=== PATIENT | male | born 1960 | race Caucasian/White ===

== ENCOUNTER 2017-06-23 17:57 | Observation (INO) | payer OTHER ==
[~2017-06-23] VITALS: Ht 177.8 cm; Wt 90.0 kg
[~2017-06-23 17:57] MED LIST: BUPR100T4 PO; CITA40TA4 PO; CYCL5TAB PO; GEMF600T PO; LISI40TA PO; NEUR300C PO; OXYC-432 PO; TAMS0.4C4 PO; TEST1INJ3 IM
[2017-06-23 17:59] VITALS: BP 171/77; PULSE 67; RESP 20; TEMP 98.3; O2SAT 96
[2017-06-23 18:29] VITALS: BP_SYST 171; BP_SYST 191; BP_DIAS 77; BP_DIAS 93; PULSE 60; RESP 17
[2017-06-23] MEDS ORDERED: SODIUM CHLORIDE 0.9% FLUSH 10 ML FLUSH IVF PRN (18:45)
[2017-06-23 18:59] VITALS: O2SAT 97
[2017-06-23 19:23] LABS: AUTOMATED NEUTROPHIL # 8.6 TH/MM3 (1.8-7.7); BASOPHIL # 0.1 TH/MM3 (0-0.2); BASOPHIL % 0.6 % (0.0-2.0); EOSINOPHIL # 0.3 TH/MM3 (0-0.4); EOSINOPHIL % 2.3 % (0.0-4.0); HEMATOCRIT 47.7 % (39.0-51.0); HEMOGLOBIN 16.4 GM/DL (13.0-17.0); LYMPH % 21.7 % (9.0-44.0); LYMPHOCYTE # 2.7 TH/MM3 (1.0-4.8); MEAN CELL VOLUME 94.7 FL (80.0-100.0); MEAN CORPUSCULAR HEMOGLOBIN 32.6 PG (27.0-34.0); MEAN CORPUSCULAR HGB CONC 34.5 % (32.0-36.0); MEAN PLATELET VOLUME 7.3 FL (7.0-11.0); MONO % 5.4 % (0.0-8.0); MONOCYTE # 0.7 TH/MM3 (0-0.9); PLATELET COUNT 328 TH/MM3 (150-450); RED BLOOD COUNT 5.04 MIL/MM3 (4.50-5.90); RED CELL DISTRIBUTION WIDTH 15.7 % (11.6-17.2); WHITE BLOOD COUNT 12.3 TH/MM3 (4.0-11.0)
[2017-06-23] MEDS ORDERED: FAMOTIDINE 20 MG/2 ML VIAL IV PUSH SCH (19:30)
[2017-06-23] MEDS ORDERED: PANTOPRAZOLE SODIUM 40 MG VIAL IV PUSH ONE (19:30)
[2017-06-23] MEDS ORDERED: ASPIRIN 81 MG CHEW TAB CHEW ONE (19:30)
--- NOTE | 2017-06-23 19:30 | PD ---
HPI Chief Complaint: Chest Pain Time Seen by Provider: 19:02 Travel History International Travel<30 days: No Contact w/Intl Traveler<30days: No Traveled to known affect area: No History of Present Illness HPI Patient is a 56-year-old male with heavy numbness in his chest. He said for the last few weeks he has had a cough and asthma like reactive airway. He said now he feels like a heavy pressure on his chest for the last few hours. He denies pleuritic pain he denies worsening with cough he did not take any aspirin he did not come by EMS he was in his doctor's office when he described a heavy pressure in his chest the doctor did an EKG and sent him to the ER for further eval. Patient refused transfer by ambulance but came by a car. He has not received aspirin or nitro. He has no allergic allergies to any medication. His pain as heaviness pressure-like constant in his chest for the last few hours seen in his doctor's office prior to arrival in the ER not given anything to alleviate the symptoms and to continue now in the ER he is hypertensive on my first exam systolic pressure is 191 he is on antihypertensive meds he does not remove other name PFSH Past Medical History Hx Anticoagulant Therapy: No Depression: Yes Cardiovascular Problems: Yes (HTN) Hypertension: Yes Tetanus Vaccination: > 5 Years Influenza Vaccination: Yes Social History Alcohol Use: No Tobacco Use: No Substance Use: No Allergies-Medications (Allergen,Severity, Reaction): Coded Allergies: shellfish derived (Unverified Allergy, Severe, 06/23/17) Reported Meds & Prescriptions Reported Meds & Active Scripts Active Reported Flexeril (Cyclobenzaprine HCl) 5 Mg Tab 5 Mg PO TID Neurontin (Gabapentin) 300 Mg Cap 300 Mg PO TID Citalopram (Citalopram Hydrobromide) 40 Mg Tab 40 Mg PO DAILY Tamsulosin (Tamsulosin HCl) 0.4 Mg Cap 0.4 Mg PO HS Gemfibrozil 600 Mg Tab 600 Mg PO BIDAC Take 30 minutes prior to breakfast and dinner. Bupropion HCl 100 Mg Tab 100 Mg PO HS Lisinopril 40 Mg Tab 40 Mg PO DAILY Testosterone Cypionate Inj (Testosterone Cypionate) 100 Mg/Ml Inj 50 Mg IM DAILY Oxycodone-Acetaminophen 5-325 mg Tab 1 Tab PO DAILY PRN Review of Systems Except as stated in HPI: all other systems reviewed are Neg Cardiovascular: Positive: Chest Pain or Discomfort Respiratory: Positive: Cough, Shortness of Breath Physical Exam Narrative GENERAL: awake alert htn 191 tanned SKIN: Warm and dry.tanned skin HEAD: Atraumatic. Normocephalic. EYES: Pupils equal and round. No scleral icterus. No injection or drainage. 2mm pupils ENT: No nasal bleeding or discharge. Mucous membranes pink and moist. NECK: Trachea midline. No JVD. CARDIOVASCULAR: Regular rate and rhythm. multiple PACs RESPIRATORY: No accessory muscle use. diffuse wheeze worse in Right lung GASTROINTESTINAL: Abdomen soft, non-tender, nondistended. Hepatic and splenic margins not palpable. MUSCULOSKELETAL: Extremities without clubbing, cyanosis, or edema. No obvious deformities. NEUROLOGICAL: Awake and alert. No obvious cranial nerve deficits. Motor grossly within normal limits. Five out of 5 muscle strength in the arms and legs. Normal speech. PSYCHIATRIC: Appropriate mood and affect; insight and judgment normal. Data Data Last Documented VS Vital Signs Date Time Temp Pulse Resp B/P (MAP) Pulse Ox O2 Delivery O2 Flow Rate FiO2 06/23/17 21:05 62 16 157/69 (98) 97 Room Air 06/23/17 18:59 2.00 06/23/17 17:59 98.3 Orders Orders Chest, Pa & Lat (06/23/17 ) Electrocardiogram (06/23/17 ) Ckmb (Isoenzyme) Profile (06/23/17 18:40) Complete Blood Count With Diff (06/23/17 18:40) Comprehensive Metabolic Panel (06/23/17 18:40) Magnesium (Mg) (06/23/17 18:40) Prothrombin Time / Inr (Pt) (06/23/17 18:40) Act Partial Throm Time (Ptt) (06/23/17 18:40) Troponin I (06/23/17 18:40) Lipase (06/23/17 18:40) Ecg Monitoring (06/23/17 18:40) Bilateral Bp Monitoring (06/23/17 18:40) Iv Access Insert/Monitor (06/23/17 18:40) Oximetry (06/23/17 18:40) Oxygen Administration (06/23/17 18:40) Sodium Chloride 0.9% Flush (Ns Flush) (06/23/17 18:45) Aspirin Chew (Aspirin Chew) (06/23/17 19:30) Famotidine Inj (Pepcid Inj) (06/23/17 19:30) Pantoprazole Inj (Protonix Inj) (06/23/17 19:30) CKMB (06/23/17 18:45) CKMB% (06/23/17 18:45) Nitroglycerin Sl (Nitrostat Sl) (06/23/17 20:00) Nitroglycerin 2% Oint (Nitroglycerin 2% (06/23/17 20:00) B-Type Natriuretic Peptide (06/23/17 19:51) Ipratropium Neb (Atrovent Neb) (06/23/17 20:00) Admit Order (Ed Use Only) (06/23/17 21:29) Labs Laboratory Tests Test 06/23/17 18:45 White Blood Count 12.3 TH/MM3 Red Blood Count 5.04 MIL/MM3 Hemoglobin 16.4 GM/DL Hematocrit 47.7 % Mean Corpuscular Volume 94.7 FL Mean Corpuscular Hemoglobin 32.6 PG Mean Corpuscular Hemoglobin Concent 34.5 % Red Cell Distribution Width 15.7 % Platelet Count 328 TH/MM3 Mean Platelet Volume 7.3 FL Neutrophils (%) (Auto) 70.0 % Lymphocytes (%) (Auto) 21.7 % Monocytes (%) (Auto) 5.4 % Eosinophils (%) (Auto) 2.3 % Basophils (%) (Auto) 0.6 % Neutrophils # (Auto) 8.6 TH/MM3 Lymphocytes # (Auto) 2.7 TH/MM3 Monocytes # (Auto) 0.7 TH/MM3 Eosinophils # (Auto) 0.3 TH/MM3 Basophils # (Auto) 0.1 TH/MM3 CBC Comment DIFF FINAL Differential Comment Prothrombin Time 10.0 SEC Prothromb Time International Ratio 1.0 RATIO Activated Partial Thromboplast Time 29.0 SEC Blood Urea Nitrogen 9 MG/DL Creatinine 1.03 MG/DL Random Glucose 77 MG/DL Total Protein 7.7 GM/DL Albumin 3.9 GM/DL Calcium Level 9.0 MG/DL Magnesium Level 2.1 MG/DL Alkaline Phosphatase 77 U/L Aspartate Amino Transf (AST/SGOT) 21 U/L Alanine Aminotransferase (ALT/SGPT) 32 U/L Total Bilirubin 0.4 MG/DL Sodium Level 137 MEQ/L Potassium Level 4.3 MEQ/L Chloride Level 106 MEQ/L Carbon Dioxide Level 22.6 MEQ/L Anion Gap 8 MEQ/L Estimat Glomerular Filtration Rate 75 ML/MIN Total Creatine Kinase 159 U/L Creatine Kinase MB 2.2 NG/ML Troponin I LESS THAN 0.02 NG/ML B-Type Natriuretic Peptide 32 PG/ML Lipase 226 U/L MDM Medical Decision Making Medical Screen Exam Complete: Yes Emergency Medical Condition: Yes Interpretation(s) SINUS ANTHONY with short sinus pause , normal p QRS complex x 2 then pause then repeated pattern , not causing hypotension Differential Diagnosis HTN vs chest pain cause elvated HTN vs HTN causing cardiac ischemia vs GERD pain causing elevated BP other Narrative Course Protonix and nitro and ASA and ekg x 2 then trop negative admit to chest pain center for 3 trop and stress test in AM Diagnosis Primary Impression: Chest pain Qualified Codes: R07.9 - Chest pain, unspecified Additional Impression: Hypertension Qualified Codes: I10 - Essential (primary) hypertension Admitting Information Admitting Physician Requests: Observation Mike Leach MD Jun 23, 2017 19:30
[2017-06-23 19:44] LABS: ALBUMIN 3.9 GM/DL (3.4-5.0); AST (GOT) 21 U/L (15-37); BICARBONATE 22.6 MEQ/L (21.0-32.0); BLOOD UREA NITROGEN 9 MG/DL (7-18); CHLORIDE 106 MEQ/L (98-107); CREATININE 1.03 MG/DL (0.60-1.30); GLOMERULAR FILTRATION RATE 75 ML/MIN (>89); GLUCOSE,RANDOM 77 MG/DL (74-106); MAGNESIUM 2.1 MG/DL (1.5-2.5); SODIUM (NA) 137 MEQ/L (136-145)
[2017-06-23 19:45] LABS: ALT (GPT) 32 U/L (12-78)
[2017-06-23 19:49] LABS: ALKALINE PHOSPHATASE 77 U/L (45-117); TOTAL BILIRUBIN ADULT 0.4 MG/DL (0.2-1.0); TOTAL PROTEIN 7.7 GM/DL (6.4-8.2); TROPONIN I LESS THAN 0.02 NG/ML (0.02-0.05)
--- NOTE | 2017-06-23 19:56 | RADRPT ---
EXAM DATE/TIME: 06/23/2017 19:27 [facility] COMPARISON: No previous studies available for comparison. INDICATIONS : Pt was diagnosed by his PCP with Bronchitis June 07, 2017 and has been coughing and vomiting for over one month. Pt states he feels extreme pressure on his chest. MEDICAL HISTORY : None. Bronchitis 06/07/2017 SURGICAL HISTORY : None. ENCOUNTER: Initial ACUITY: 1 month PAIN SCORE: 5/10 LOCATION: Bilateral chest FINDINGS: PA and lateral views of the chest demonstrate the lungs to be symmetrically aerated without evidence of mass, infiltrate or effusion. The cardiomediastinal contours are unremarkable. Osseous structure s are intact. CONCLUSION: No acute disease. Tristen Mathur MD on June 23, 2017 at 19:53 Board Certified Radiologist. This report was verified electronically.
[2017-06-23] MEDS ORDERED: NITROGLYCERIN 0.4 MG SL 25 TABS/BTL SL ONE (20:00)
[2017-06-23] MEDS ORDERED: RESP: IPRATROPIUM 0.5 MG/2.5 ML NEB NEB ONE (20:00)
[2017-06-23] MEDS ORDERED: NITROGLYCERIN 2% OINT 1 GM PACKET TOPICAL ONE (20:00)
[2017-06-23 21:05] VITALS: BP 157/69; PULSE 62; RESP 16; O2SAT 97
[2017-06-23] MEDS: SODIUM CHLORIDE 0.9% FLUSH 10 ML FLUSH IV FLUSH SCH (21:44)
[2017-06-23] MEDS ORDERED: SODIUM CHLORIDE 0.9% FLUSH 10 ML FLUSH IV FLUSH PRN (21:45)
[2017-06-23 22:51] VITALS: BP 140/82; PULSE 72; RESP 16; O2SAT 96
[2017-06-24] VITALS (9 sets, daily range): BP systolic 124–149; BP diastolic 70–74; PULSE 53–100; RESP 16–18; TEMP 98–98.6; O2SAT 93–97
[2017-06-24 00:04] LABS: TROPONIN I LESS THAN 0.02 NG/ML (0.02-0.05)
[2017-06-24 03:57] LABS: TROPONIN I LESS THAN 0.02 NG/ML (0.02-0.05)
[2017-06-24] MEDS ORDERED: oxyCODONE/ACETAMINOPHEN 5 MG/325 MG TAB PO PRN (07:45)
[2017-06-24] MEDS: SODIUM CHLORIDE 0.9% FLUSH 10 ML FLUSH IV FLUSH SCH (08:54)
[2017-06-24] MEDS ORDERED: CYCLOBENZAPRINE HCL 10 MG TAB PO SCH (09:00)
[2017-06-24] MEDS ORDERED: CITALOPRAM HYDROBROMIDE 40 MG TAB PO SCH (09:00)
[2017-06-24] MEDS ORDERED: LISINOPRIL 20 MG TAB PO SCH (09:00)
[2017-06-24] MEDS ORDERED: GABAPENTIN 300 MG CAP PO SCH (09:00)
--- NOTE | 2017-06-24 09:18 | HHI.HP ---
[facility] Primary Care Physician Jose Duncan MD Chief Complaint Chest pain History of Present Illness This is a 56-year-old male the presents to ED and to be evaluated by his PCP chest discomfort. His history of hypertension hyperlipidemia tobacco abuse and 5 myalgia. He states that he developed a discomfort in his chest yesterday morning that he describes as a tightness and an elephant sitting on his chest that lasted pretty much all day. He has been short of breath but also states he has been having a nonproductive cough for the past few weeks. Denies nausea or diaphoresis with the symptoms. Currently denies chest discomfort. Denies history of prior coronary artery disease. Review of Systems General: Patient denies fevers, chills, and recent travel. HEENT: Patient denies headache, sore throat, difficulty swallowing. Cardiovascular: Has the chest discomfort as mentioned above. Denies sensation of heart beating rapidly or irregularly. No syncope. Denies diaphoresis per Respiratory: He was short of breath. Denies inspirational chest discomfort. He has had a nonproductive cough the last 2-3 weeks. Denies wheezing or hemoptysis. GI: Patient denies nausea, vomiting, diarrhea, abdominal pain, bloody stools. Musculoskeletal: Patient denies joint pain or edema. Denies calf pain or edema. Neurovascular: Patient denies numbness, tingling, weakness in extremities. Denies headache. Endocrine: Denies polyuria and polydipsia. Hematologic: Denies easy bruising. Skin: Denies rash or itching. Past Family Social History Allergies: Coded Allergies: shellfish derived (Unverified Allergy, Severe, 06/23/17) Past Medical History Hypertension, hyperlipidemia, fiber myalgia, tobacco abuse. Denies diabetes and known CAD. Past Surgical History Noncontributory. Reported Medications Reported Meds & Active Scripts Active Reported Flexeril (Cyclobenzaprine HCl) 5 Mg Tab 5 Mg PO TID Neurontin (Gabapentin) 300 Mg Cap 300 Mg PO TID Citalopram (Citalopram Hydrobromide) 40 Mg Tab 40 Mg PO DAILY Tamsulosin (Tamsulosin HCl) 0.4 Mg Cap 0.4 Mg PO HS Gemfibrozil 600 Mg Tab 600 Mg PO BIDAC Take 30 minutes prior to breakfast and dinner. Bupropion HCl 100 Mg Tab 100 Mg PO HS Lisinopril 40 Mg Tab 40 Mg PO DAILY Testosterone Cypionate Inj (Testosterone Cypionate) 100 Mg/Ml Inj 50 Mg IM DAILY Oxycodone-Acetaminophen 5-325 mg Tab 1 Tab PO DAILY PRN Active Ordered Medications Current Medications Medications (Trade) Dose Ordered Sig/Esther Route Start Time Stop Time Status Last Admin (NS Flush) 2 ml UNSCH PRN IVF 06/23/17 18:45 06/23/17 20:32 (Pepcid Inj) 20 mg ONCE IV PUSH 06/23/17 19:30 06/23/17 20:31 (NS Flush) 2 ml UNSCH PRN IV FLUSH 06/23/17 21:45 (NS Flush) 2 ml BID IV FLUSH 06/23/17 21:45 06/24/17 08:54 (Wellbutrin) 100 mg HS PO 06/24/17 21:00 (CeleXA) 40 mg DAILY PO 06/24/17 09:00 06/24/17 08:55 (Flexeril) 5 mg TID PO 06/24/17 09:00 06/24/17 08:55 (Neurontin) 300 mg TID PO 06/24/17 09:00 06/24/17 08:55 (Lopid) 600 mg BIDAC PO 06/24/17 16:00 (Percocet 5-325 Mg) 1 tab DAILY PRN PO 06/24/17 07:45 (Flomax) 0.4 mg HS PO 06/24/17 21:00 (Prinivil) 40 mg DAILY PO 06/24/17 09:00 06/24/17 08:54 Family History Both his parents had CAD and of MIs. Social History Smokes occasional cigar. Denies alcohol or illicit drug use. Physical Exam Vital Signs Vital Signs Date Time Temp Pulse Resp B/P (MAP) Pulse Ox O2 Delivery O2 Flow Rate FiO2 06/24/17 08:50 98.4 67 18 149/70 (96) 95 06/24/17 04:28 98.0 54 17 133/74 (93) 93 06/24/17 01:21 58 06/24/17 00:45 96 06/24/17 00:13 98.6 53 16 129/74 (92) 97 06/23/17 22:51 72 16 140/82 (101) 96 Room Air 06/23/17 21:05 62 16 157/69 (98) 97 Room Air 06/23/17 18:59 97 Nasal Cannula 2.00 06/23/17 18:59 97 Nasal Cannula 2.00 06/23/17 18:29 60 17 171/77 (108) Nasal Cannula 2.00 191/93 (125) 06/23/17 17:59 98.3 67 20 171/77 (108) 96 Physical Exam GENERAL: This is a well-nourished, well-developed patient, in no apparent distress. Patient speaks in clear complete sentences. Patient is pleasant. HEENT: Head is atraumatic and normocephalic. Neck is supple without lymphadenopathy and trachea is midline. No JVD or carotid bruits. CARDIOVASCULAR: Regular rate and rhythm without murmurs, gallops, or rubs. RESPIRATORY: Clear to auscultation. Breath sounds equal bilaterally. No wheezes , rales, or rhonchi. Chest wall is nontender. No use of accessory muscles. GASTROINTESTINAL: Abdomen is nontender, nondistended. Abdomen soft. No obvious pulsatile mass or bruit. No CVA tenderness. Strong femoral pulses bilaterally. Normal bowel sounds in all quadrants. MUSCULOSKELETAL: Patient is moving upper and lower extremities freely. No calf tenderness or edema, no Homans sign. Strong pulses in upper and lower extremities. NEUROLOGICAL: Patient is alert and oriented. Cranial nerves 2-12 are grossly intact. No focal deficits and speech is clear. SKIN: No rash and turgor is normal. Laboratory Laboratory Tests Test 06/23/17 18:45 06/23/17 22:40 06/24/17 02:49 White Blood Count 12.3 Red Blood Count 5.04 Hemoglobin 16.4 Hematocrit 47.7 Mean Corpuscular Volume 94.7 Mean Corpuscular Hemoglobin 32.6 Mean Corpuscular Hemoglobin Concent 34.5 Red Cell Distribution Width 15.7 Platelet Count 328 Mean Platelet Volume 7.3 Neutrophils (%) (Auto) 70.0 Lymphocytes (%) (Auto) 21.7 Monocytes (%) (Auto) 5.4 Eosinophils (%) (Auto) 2.3 Basophils (%) (Auto) 0.6 Neutrophils # (Auto) 8.6 Lymphocytes # (Auto) 2.7 Monocytes # (Auto) 0.7 Eosinophils # (Auto) 0.3 Basophils # (Auto) 0.1 CBC Comment DIFF FINAL Differential Comment Prothrombin Time 10.0 Prothromb Time International Ratio 1.0 Activated Partial Thromboplast Time 29.0 Blood Urea Nitrogen 9 Creatinine 1.03 Random Glucose 77 Total Protein 7.7 Albumin 3.9 Calcium Level 9.0 Magnesium Level 2.1 Alkaline Phosphatase 77 Aspartate Amino Transf (AST/SGOT) 21 Alanine Aminotransferase (ALT/SGPT) 32 Total Bilirubin 0.4 Sodium Level 137 Potassium Level 4.3 Chloride Level 106 Carbon Dioxide Level 22.6 Anion Gap 8 Estimat Glomerular Filtration Rate 75 Total Creatine Kinase 159 165 165 Creatine Kinase MB 2.2 2.1 2.3 Troponin I LESS THAN 0.02 LESS THAN 0.02 LESS THAN 0.02 B-Type Natriuretic Peptide 32 Lipase 226 Result Diagram: 06/23/17 1845 06/23/17 1845 Imaging Last 48 hours Impressions Chest X-Ray 06/23/17 0000 Signed Impressions: Service Date/Time: Friday, June 23, 2017 19:27 - CONCLUSION: No acute disease. Tristen Mathur MD Course EKGs are sinus rhythm reveals a new right bundle branch block that was not present on a prior visit. Caprini VTE Risk Assessment Caprini VTE Risk Assessment: No/Low Risk (score <= 1) Caprini Risk Assessment Model Point Value = 1 Point Value = 2 Point Value = 3 Point Value = 5 Age 41-60 Minor surgery BMI > 25 kg/m2 Swollen legs Varicose veins or History of unexplained or recurrent spontaneous Oral contraceptives or hormone replacement Sepsis (< 1 month) Serious lung disease, including pneumonia (< 1 month) Abnormal pulmonary function Acute myocardial infarction Congestive heart failure (< 1 month) History of inflammatory bowel disease Medical patient at bed rest Age 61-74 Arthroscopic surgery Major open surgery (> 45 min) Laparoscopic surgery (> 45 min) Malignancy Confined to bed (> 72 hours) Immobilizing plaster cast Central venous access Age >= 75 History of VTE Family history of VTE Factor V Leiden Prothrombin [id number] Lupus anticoagulant Anticardiolipin antibodies Elevated serum homocysteine Heparin-induced thrombocytopenia Other congenital or acquired thrombophilia Stroke (< 1 month) Elective arthroplasty Hip, pelvis, or leg fracture Acute spinal cord injury (< 1 month) Prophylaxis Regimen Total Risk Factor Score Risk Level Prophylaxis Regimen 0-1 Low Early ambulation 2 Moderate Order ONE of the following: *Sequential Compression Device (SCD) *Heparin 5000 units SQ BID 3-4 Higher Order ONE of the following medications: *Heparin 5000 units SQ TID *Enoxaparin/Lovenox 40 mg SQ daily (WT < 150 kg, CrCl > 30 mL/min) *Enoxaparin/Lovenox 30 mg SQ daily (WT < 150 kg, CrCl > 10-29 mL/min) *Enoxaparin/Lovenox 30 mg SQ BID (WT < 150 kg, CrCl > 30 mL/min) AND/OR *Sequential Compression Device (SCD) 5 or more Highest Order ONE of the following medications: *Heparin 5000 units SQ TID (Preferred with Epidurals) *Enoxaparin/Lovenox 40 mg SQ daily (WT < 150 kg, CrCl > 30 mL/min) *Enoxaparin/Lovenox 30 mg SQ daily (WT < 150 kg, CrCl > 10-29 mL/min) *Enoxaparin/Lovenox 30 mg SQ BID (WT < 150 kg, CrCl > 30 mL/min) AND *Sequential Compression Device (SCD) Assessment and Plan Assessment and Plan * Chest pain: Patient has had serial cardiac enzymes and EKGs for ruling out purposes. He has been seen by Dr. Myron Mcconnell of cardiology in the chest pain center and will undergo a Lexiscan. Patient be discharged home if the stress test is nonischemic with instructions to follow-up with PCP. Return to ED for interval issues. * Hypertension: Continue medication. * Hyperlipidemia: Continue medication. * Tobacco abuse: Patient has been counseled on importance of smoking cessation. Patient is stable at this time. He is agreeable to this plan. Jose Collado Jun 24, 2017 09:18
[2017-06-24] MEDS ORDERED: ASPIRIN 325 MG TAB PO SCH (09:30)
--- NOTE | 2017-06-24 09:57 | EKG ---
Date Performed: 06/24/2017 Time Performed: 02:41:09 PTAGE: 56 years EKG: SINUS BRADYCARDIA WITH MARKED SINUS ARRHYTHMIA RIGHT BUNDLE BRANCH BLOCK ABNORMAL ECG PREVIOUS TRACING : 06/23/2017 22.37 Since previous tracing, no significant change noted DOCTOR: Myron Mcconnell Interpretating Date/Time 06/24/2017 09:55:12
--- NOTE | 2017-06-24 09:58 | EKG ---
Date Performed: 06/23/2017 Time Performed: 22:37:46 PTAGE: 56 years EKG: SINUS BRADYCARDIA WITH MARKED SINUS ARRHYTHMIA RIGHT BUNDLE BRANCH BLOCK ABNORMAL ECG PREVIOUS TRACING : 06/23/2017 18.08 Since previous tracing, no significant change noted DOCTOR: Myron Mcconnell Interpretating Date/Time 06/24/2017 09:56:04
--- NOTE | 2017-06-24 09:59 | EKG ---
Date Performed: 06/23/2017 Time Performed: 18:08:07 PTAGE: 56 years EKG: SINUS BRADYCARDIA WITH MARKED SINUS ARRHYTHMIA RIGHT BUNDLE BRANCH BLOCK ABNORMAL ECG PREVIOUS TRACING : 04/27/2000 08.30 Compared to previous tracing, right bundle branch block is new DOCTOR: Myron Mcconnell Interpretating Date/Time 06/24/2017 09:58:00
[2017-06-24] MEDS ORDERED: REGADENOSON INJ 0.4 MG/5 ML SYR ONE (10:43)
--- NOTE | 2017-06-24 12:19 | RADRPT ---
EXAM DATE/TIME: 06/24/2017 10:32 [facility] COMPARISON: CHEST PA & LAT, June 23, 2017, 19:27. INDICATIONS : Chest pain for a few hours. Persistant cough for a couple weeks. Angina. DOSE: 26.4 mCi Tc99m Myoview at stress. 8.1 mCi Tc99m Myoview at rest. 0.4 mg Lexiscan STRESS SYMPTOMS: Shortness of breath with coughing. EJECTION FRACTION: 55% MEDICAL HISTORY : Hypercholesterolemia. Hypertension. SURGICAL HISTORY : Left hand and shoulder. ENCOUNTER: Initial ACUITY: 1 day PAIN SCALE: 8/10 LOCATION: chest TECHNIQUE: The patient underwent pharmacologic stress with infusion of prescribed dose. Continuous ECG tracing was monitored during stress. Gated SPECT imaging was performed after stress and conventional SPECT i maging was performed at rest. The examination was performed on a SPECT/CT scanner, both attenuation and non-corrected datasets were reviewed. FINDINGS: DISTRIBUTION: The maximum perfused segment at stress is in the anterolateral wall. PERFUSION STUDY: No significant fixed or reversible perfusion defect is identified. GATED STUDY: There is intact wall motion and thickening without hypokinetic or dyskinetic segments. CONCLUSION: 1. No left ventricle perfusion abnormality is identified. 2. Normal left ventricular wall motion and ejection fraction. RISK CATEGORY: Low (<1% Annual Mortality Rate) Tristen Lima MD on June 24, 2017 at 12:14 Board Certified Radiologist. This report was verified electronically.
--- NOTE | 2017-06-24 12:38 | HHI.DCPOC ---
Discharge Care Plan Diagnosis: (1) Chest pain (2) Hypertension (3) Hyperlipidemia (4) Tobacco abuse Goals to Promote Your Health * To prevent worsening of your condition and complications * To maintain your health at the optimal level Directions to Meet Your Goals Take your medications as prescribed Follow your dietary instruction Follow activity as directed Keep your appointments as scheduled Take your immunizations and boosters as scheduled If your symptoms worsen call your PCP, if no PCP go to Urgent Care Center or Emergency Room Smoking is Dangerous to Your Health. Avoid second hand smoke Call the 24-hour hour crisis hotline for domestic abuse at Jose Collado Jun 24, 2017 12:38
[2017-06-24] MEDS ORDERED: GEMFIBROZIL 600 MG TAB PO SCH (16:00)
[2017-06-24] MEDS ORDERED: buPROPion HCL 100 MG TAB PO SCH (21:00)
[2017-06-24] MEDS ORDERED: TAMSULOSIN HCL 0.4 MG CAP PO SCH (21:00)
--- NOTE | 2017-06-26 11:39 | TR ---
Date Performed: 06/24/2017 Time Performed: 10:53:04 DOCTOR: River Kimball DRUG LIST: CLINICAL HISTORY: REASON FOR TEST: REASON FOR ENDING: OBSERVATION: CONCLUSION: COMMENTS: Lexiscan stress test was performed under standard four minute protocol. Radionuclide was injected one minute prior to ending the test. No electrocardiographic abormalities were present t o suggest ischemia. Nuclear imaging and interpretation are pending.
== END 2017-06-24 13:53 | disposition home or self-care (01) ==
LOC: NEPE 17:57 → NEDA 21:31 → NEPGCP 22:59
PROVIDERS: ADMIT Internal Medicine Cardiovascular Disease; ATTEND Internal Medicine Cardiovascular Disease
DX: R07.89 Other chest pain (principal); I10 Essential (primary) hypertension; E78.5 Hyperlipidemia, unspecified; J45.909 Unspecified asthma, uncomplicated; R05 Cough; M79.1 Myalgia; R06.02 Shortness of breath; F17.200 Nicotine dependence, unspecified, uncomplicated; E78.00 Pure hypercholesterolemia, unspecified; R94.31 Abnormal electrocardiogram [ECG] [EKG]
CPT/HCPCS: 71046; 78452; 80053; 82550; 82552; 83690; 83735; 83880; 84484; 85025; 85610; 85730; 93005; 93017; 94664; 96374; 99285; A9502; G0378; J2785; J7644